=== PATIENT | female | born 1955 | race Caucasian/White ===

== ENCOUNTER 2016-11-27 11:19 | Emergency (ER) | payer MEDICARE ==
[2016-11-27 11:28] VITALS: BP 161/91; PULSE 83; RESP 18; O2SAT 97
--- NOTE | 2016-11-27 12:06 | ED.REPORT ---
HPI-Medication Refill Date of Service Nov 27, 2016 ED Provider: History of Present Illness: needs refill of medications from [facility]. will be living in [facility]. Takes asa 81 mg ECamiodarone 200 mg qdsertraline 50 mg qdclopidogrel 75 mg qdmetoprolol succ 50 mg er qd [id number] mg po albuterol inhaler evening will need primary care Nursing Notes Stated Complaint: MEDICATIONS Chief Complaint: General Complaint Nursing Notes Reviewed: Yes Allergies: Coded Allergies: No Known Allergies (Unverified , 11/27/16) General Time Seen by Provider: 12:06 Chief Complaint Ran out of medication Hx Obtained From: Patient Past Medical History Past Medical History allergies Reports: Hypertension Past Surgical History open heart surgery 5 blocked arteries 2.5 years done in [place] Smoking History Never Smoker Social History Alcohol Use: Denies alcohol use Drug Use: Denies drug use Occupation lives with partner. no work or school at this time Ambulatory Status Independent Review of Systems Basic Review of Systems Eyes: Vision NL, No discharge Hematologic: No bleeding, No bruising Psychiatric: Normal thought content Physical Exam Initial Vital Signs Vital Signs (First) Date Time Temp Pulse Resp B/P Pulse Ox O2 Delivery O2 Flow Rate FiO2 11/27/16 11:28 36.6 83 18 161/91 97 Room Air Initial VS: Reviewed, Vital signs normal General/Constitutional: Well-developed, Well-nourished Head / Eyes: Atraumatic, Normocephalic, PERRL ENT: Mucous membranes moist, Conjunctiva normal, No scleral icterus Neck: Supple, Non-tender, Full range of motion Respiratory: Breath sounds normal, Clear to auscultation, No respiratory distress Cardiovascular: Regular rate & rhythm, Heart sounds normal, Intact distal pulses Abdomen / GI: Soft, Non-tender, No guarding, No rebound, No distention Back: No CVA tenderness Lymphatic: No lymphadenopathy Extremities: Vascular intact, Neuro intact, No swelling, No tenderness Skin: Warm, Dry, No cyanosis Neurologic: Alert, Oriented, Nonfocal Psychiatric: Mood/affect normal, Behavior normal, Normal thought content General/Constitutional: Awake, Alert, No acute distress, Well appearing, Well developed, Well hydrated Respiratory / Chest: Atraumatic, Breath sounds NL, Breath sounds = bilat, No respiratory distress Cardiovascular: Heart rate NL, Regular rhythm, Heart sounds NL, No gallop Re-Evaluation & MDM Med Decision/Clinical Course 61 year old femal presents for refill of medication. REfills provided. Blood pressure does decrease after being provided doses of her medication. Encouraged follow up Patient Discharge & Departure Impression: Primary Impression: Medication refill Disposition: Home Additional Instructions: the medication have been refilled by prescription. Please consider [facility] or [facility]. or use the prescription drug card for savings. Please call the residency clinic for an appointment. You are being provided 3 months of the medication. 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 REturn with any concerns. Referrals: [facility] EDSupervising Provider for APC: Arvind Cleveland MD copies to: [facility] Cherrie Bland Nov 27, 2016 12:06
[2016-11-27 12:15] VITALS: BP 193/105; PULSE 57; RESP 15; O2SAT 100
[2016-11-27] MEDS ORDERED: MeTOProlol XL 50 mg ER24 Tablet PO ONE (12:30)
[2016-11-27 13:55] VITALS: BP 161/92; PULSE 54; RESP 15; O2SAT 96
[2016-11-27 15:08] VITALS: BP 130/77; PULSE 65; RESP 15
== END 2016-11-27 15:09 | disposition home or self-care (01) ==
LOC: SED 11:19
DX: Z76.0 Encounter for issue of repeat prescription (principal); I10 Essential (primary) hypertension